=== PATIENT | male | born 1960 | race African-American/Black ===

== ENCOUNTER 2021-12-07 07:08 | Observation (INO) | payer OTHER ==
[2021-12-07] MEDS ORDERED: Metoprolol Tartrate 5 MG/5 ML VIAL ONE (07:56)
[2021-12-07] MEDS ORDERED: TICAGRELOR 90 MG TABLET ONE (07:57)
[2021-12-07] MEDS ORDERED: Senokot S 8.6-50 MG TAB PO PRN (08:54)
[2021-12-07] MEDS ORDERED: HYDROcodone/Acetaminophen 5/325 mg Tablet PO PRN (08:54)
[2021-12-07] MEDS ORDERED: Nitroglycerin 0.4 MG TAB (25 Tab Bottle) SL PRN (08:54)
[2021-12-07] MEDS ORDERED: Bisacodyl 5 MG TAB PO PRN (08:54)
[2021-12-07] MEDS: Famotidine 20 MG TAB PO SCH ×2 (10:51→21:15)
[2021-12-07 11:50] LABS: Troponin I 1.778 ng/mL (< 0.028)
[2021-12-07 13:58] VITALS: BMI 33.7
[2021-12-07 14:41] LABS: Magnesium 1.8 mg/dL (1.6-2.6)
[2021-12-07] MEDS: Metoprolol Tartrate 5 MG/5 ML VIAL IVP SCH ×2 (14:45→21:46)
[2021-12-07] MEDS ORDERED: hydrALAZINE 20 MG/ML VIAL SLOW IVP SCH (16:30)
[2021-12-07 19:39] LABS: Hemoglobin A1c 5.5 % (4.0-6.0)
[2021-12-07] MEDS ORDERED: Lisinopril 20 MG TAB PO SCH (20:00)
[2021-12-07] MEDS ORDERED: Nitroglycerin 2% Ointment 1 INCH/1 GM Packet TOP SCH (21:00)
[2021-12-07] MEDS ORDERED: Enoxaparin Sodium 120 MG/0.8 ML SYRINGE SC SCH (21:00)
[2021-12-07] MEDS ORDERED: Communication Order-Pharmacy FS SCH (21:00)
[2021-12-07] MEDS: Metoprolol Tartrate 25 MG TAB PO SCH (21:14)
[2021-12-07] MEDS: TICAGRELOR 90 MG TABLET PO SCH (21:20)
[2021-12-08] MEDS: hydrALAZINE 20 MG/ML VIAL SLOW IVP PRN ×4 (00:32→23:38)
[2021-12-08] MEDS: Acetaminophen 325 MG TAB PO PRN ×2 (04:27→08:22)
[2021-12-08 04:49] LABS: ALT (SGPT) 11 U/L (8-55); AST (SGOT) 20 U/L (5-34); Albumin 3.5 g/dL (3.5-5.0); Alkaline Phosphatase 50 U/L (40-110); Anion Gap 15 mmol/L (10-20); BUN (Urea Nitrogen) 12 mg/dL (8.4-25.7); Bilirubin, Total 0.8 mg/dL (0.2-1.2); Calc. Creatinine Clearance 117 mL/min (70-130); Calcium 8.7 mg/dL (7.8-10.44); Carbon Dioxide 26 mmol/L (22-29); Cardiac Risk 3.1 (Less than 4.5); Chloride 105 mmol/L (98-107); Cholesterol 113 mg/dl (< 200 Desired); Globulin 2.6 g/dL (2.4-3.5); Glucose 93 mg/dL (70-105); HDL Cholesterol 36 mg/dL (>60 Neg Risk); LDL Cholesterol, Calculated 55 mg/dL; Potassium 3.6 mmol/L (3.5-5.1); Protein, Total 6.1 g/dL (6.0-8.3); Sodium 142 mmol/L (136-145); Triglycerides 110 mg/dL (Less than 150)
[2021-12-08 04:50] LABS: #Eosinphils 0.2 10x3/uL (0.0-0.5); #Monocytes 0.8 10x3/uL (0.0-1.1); #Neutrophils 4.7 10x3/uL (1.5-8.4); %Basophils 0.5 % (0.0-2.0); %Eosinophils 2.5 % (0.0-6.0); %Lymphocytes 30.5 % (18.0-47.0); %Monocytes 9.5 % (0.0-10.0); %Neutrophils 56.8 % (40.0-75.0); Hemoglobin 13.7 g/dL (13.5-17.5); Mean Corpuscular HGB CONC 33.8 g/dL (32.0-36.0); Mean Corpuscular Hemoglobin 31.4 pg (27.0-33.0); Mean Corpuscular Volume 92.7 fl (81.2-95.1); Platelet Count 306 10x3/uL (150-450); RBC Distribution Width 14.4 % (11.5-14.5); Red Blood Cell (RBC) Count 4.37 10x6/uL (4.32-5.72); White Blood Cell (WBC) Count 8.3 10x3/uL (3.5-10.5)
[2021-12-08] MEDS: Sodium Chloride 0.9% 1,000 ML IV SCH ×4 (06:14→23:39)
[2021-12-08] MEDS: Metoprolol Tartrate 25 MG TAB PO SCH ×2 (07:15→20:34)
[2021-12-08] MEDS: Amlodipine 5 MG TAB PO SCH (08:21)
[2021-12-08] MEDS: Lisinopril 20 MG TAB PO SCH (08:50)
[2021-12-08] MEDS: TICAGRELOR 90 MG TABLET PO SCH ×2 (08:50→20:34)
[2021-12-08] MEDS: Famotidine 20 MG TAB PO SCH ×2 (08:50→20:34)
[2021-12-08] MEDS ORDERED: Aspirin 81 mg Enteric Coated Tablet PO SCH (09:00)
[2021-12-08] MEDS ORDERED: hydrALAZINE 10 MG TAB PO SCH (09:00)
[2021-12-08] MEDS ORDERED: Iopamidol 370 76% 100 ML VIAL ONE (10:21)
[2021-12-08] MEDS ORDERED: Heparin 10,000 UNITS/ 10 ML VIAL ONE (13:39)
[2021-12-08] MEDS ORDERED: Fentanyl 100 MCG/2 ML VIAL ONE (13:40)
[2021-12-08] MEDS ORDERED: Midazolam HCl 2 mg/2 ml Vial ONE ×2 (13:41→14:07)
[2021-12-08] MEDS ORDERED: hydrALAZINE 20 MG/ML VIAL ONE (14:21)
[2021-12-08] MEDS ORDERED: TICAGRELOR 90 MG TABLET ONE (14:33)
[2021-12-08] MEDS ORDERED: Ondansetron PF 4 MG/2 ML Vial ONE (14:46)
[2021-12-08] MEDS ORDERED: Atropine Sulfate 0.4 mg/1 ml Vial ONE (14:47)
[2021-12-08] MEDS ORDERED: Protamine Sulfate 50 MG/5 ML VIAL ONE (15:04)
[2021-12-08] MEDS ORDERED: cloNIDine 0.1 MG TAB PO PRN (15:31)
[2021-12-08] MEDS ORDERED: Zolpidem Tartrate 5 MG TAB PO PRN (15:31)
[2021-12-08] MEDS ORDERED: Milk Of Magnesia 30 ML UDCUP PO PRN (15:31)
[2021-12-08] MEDS ORDERED: Acetaminophen/Codeine 30-300mg Tablet PO PRN (15:31)
[2021-12-08] MEDS ORDERED: Mag-Al 1200 mg/1200 mg/30 ML UDCUP PO PRN (15:31)
[2021-12-08] MEDS ORDERED: Atorvastatin Calcium 40 MG TAB PO SCH (21:00)
[2021-12-09] MEDS: Sodium Chloride 0.9% 1,000 ML IV SCH (03:20)
[2021-12-09 05:21] LABS: #Eosinphils 0.1 10x3/uL (0.0-0.5); #Monocytes 0.9 10x3/uL (0.0-1.1); #Neutrophils 6.5 10x3/uL (1.5-8.4); %Basophils 0.4 % (0.0-2.0); %Eosinophils 1.4 % (0.0-6.0); %Lymphocytes 20.3 % (18.0-47.0); %Monocytes 9.3 % (0.0-10.0); %Neutrophils 68.3 % (40.0-75.0); Hemoglobin 14.1 g/dL (13.5-17.5); Mean Corpuscular HGB CONC 33.7 g/dL (32.0-36.0); Mean Corpuscular Hemoglobin 30.7 pg (27.0-33.0); Mean Corpuscular Volume 91.3 fl (81.2-95.1); Mean Platelet Volume 10.2 fl (7.4-10.4); Platelet Count 312 10x3/uL (150-450); RBC Distribution Width 14.3 % (11.5-14.5); Red Blood Cell (RBC) Count 4.59 10x6/uL (4.32-5.72); White Blood Cell (WBC) Count 9.5 10x3/uL (3.5-10.5)
[2021-12-09 05:33] LABS: ALT (SGPT) 11 U/L (8-55); AST (SGOT) 20 U/L (5-34); Albumin 3.6 g/dL (3.5-5.0); Alkaline Phosphatase 50 U/L (40-110); Anion Gap 17 mmol/L (10-20); BUN (Urea Nitrogen) 9 mg/dL (8.4-25.7); Bilirubin, Total 1.4 mg/dL (0.2-1.2); Calc. Creatinine Clearance 126 mL/min (70-130); Calcium 8.9 mg/dL (7.8-10.44); Carbon Dioxide 23 mmol/L (22-29); Chloride 104 mmol/L (98-107); Globulin 2.7 g/dL (2.4-3.5); Glucose 90 mg/dL (70-105); Potassium 3.6 mmol/L (3.5-5.1); Protein, Total 6.3 g/dL (6.0-8.3); Sodium 140 mmol/L (136-145)
[2021-12-09] MEDS ORDERED: Aspirin Chewable 81 MG TAB PO SCH (09:00)
[2021-12-09] MEDS: Amlodipine 5 MG TAB PO SCH (09:12)
[2021-12-09] MEDS: Metoprolol Tartrate 25 MG TAB PO SCH (09:12)
[2021-12-09] MEDS: TICAGRELOR 90 MG TABLET PO SCH (09:13)
[2021-12-09] MEDS: Famotidine 20 MG TAB PO SCH (09:13)
[2021-12-09] MEDS: Lisinopril 20 MG TAB PO SCH (09:13)
[2021-12-09 13:06] VITALS: TEMP 97.6
[2021-12-09 13:30] VITALS: BP 171/94
== END 2021-12-09 15:28 | disposition home or self-care (01) ==
LOC: CSHERS 07:08 → INTOOBSV 08:43 → CSHTELE 08:43
PROVIDERS: ADMIT Hospitalist; ATTEND Internal Medicine
DX: I21.4 Non-ST elevation (NSTEMI) myocardial infarction (principal); I25.10 Atherosclerotic heart disease of native coronary artery without angina pectoris; I10 Essential (primary) hypertension; E78.5 Hyperlipidemia, unspecified; F17.210 Nicotine dependence, cigarettes, uncomplicated; Z20.822 Contact with and (suspected) exposure to COVID-19; Z79.82 Long term (current) use of aspirin; Z79.899 Other long term (current) drug therapy; Z95.1 Presence of aortocoronary bypass graft; Z86.16 Personal history of COVID-19
CPT/HCPCS: 36415; 80053; 80061; 83036; 83735; 84443; 85025; 85347; 92937; 93005; 93010; 93459; 94760; 96372; 96374; 96375; 96376; 99152; 99153; C1760; C1769; C1874; C1887; C9604; G0378; J0360; J0461; J1644; J1650; J2250; J2405; J2720; J3010; J7050; Q9967; U0003; U0005